=== PATIENT | female | born 1990 ===

== ENCOUNTER 2019-12-28 10:45 | Emergency (ER) | payer OTHER, BC, SELFPAY ==
[2019-12-28 10:54] VITALS: BP 119/71; PULSE 72; RESP 18; TEMP 36.4; O2SAT 100
--- NOTE | 2019-12-28 11:31 | ED.ANIMALBIT ---
HPI - Animal Bite General Chief Complaint: Animal Bite Stated Complaint: dog bite Time Seen by Provider: 12/28/19 10:59 Source: patient Mode of arrival: ambulatory Limitations: no limitations History of Present Illness HPI narrative: Patient presents with chief complaint of dog bite to the nose with dorsal aspect at the base of the left thumb as well as the center of her palm that she sustained while working at the [employer]. Patient states that your dog is in good health. Patient reports some discomfort to the area but denies loss of range of motion. Patient states she does not think she is up-to-date on her Tdap. Patient denies chance of . Patient denies any other falls or injuries. Related Data Allergies Allergy/AdvReac Type Severity Reaction Status Date / Time poison ady extract Allergy Unknown Swelling Verified 12/28/19 11:44 Bumble Bee Allergy Unknown Swelling Uncoded 12/28/19 11:44 Review of Systems Review of Systems: Narrative: CONSTITUTIONAL: Denies fever, chills, or sweats. CARDIOVASCULAR: Denies chest pain, palpitations, or edema. RESPIRATORY: Denies cough or dyspnea. GASTROINTESTINAL: Denies abdominal pain, nausea, vomiting, or diarrhea. GENITOURINARY: Denies dysuria or hematuria. SKIN: Reports dog bite denies rash or itching. MUSCULOSKELETAL: Denies back pain, joint pain, or myalgia. NEUROLOGIC: Denies headache, numbness, dizziness, or weakness. PSYCHIATRIC: Denies anxiety or depression. [facility] Family History Family History (Updated 05/03/18 @ 14:43 by DOCTOR UNKNOWN) Sibling Diabetes mellitus Family history of malignant neoplasm Family history of lung cancer Social History Social History Smoking status: Smoker, status unknown Alcohol intake: current Gender identity (if verbalized by the patient): Female Exam Narrative: Exam Narrative: GENERAL: Well-appearing, well-nourished, and in no acute distress. HEAD: Normocephalic, atraumatic. EYES: PERRLA and EOMI. ENT: Nares clear, no rhinorrhea or epistaxis. Mucous membranes moist. Oropharynx without tonsillar hypertrophy exudate or other lesions. NECK: Supple. No adenopathy or masses. CHEST: Clear to auscultation. No respiratory distress. No wheezes rales or rhonchi HEART: Regular rate and rhythm. EXTREMITIES: Normal range of motion. No edema. SKIN: Approximate 1.5 cm tooth laceration to the dorsal aspect of the left hand near the thumb base. Tenderness surrounding. Puncture wound to the volar aspect- center of the palm. No active bleeding to the wounds at this time. Warm, dry, no rash. NEURO: No focal deficits. Alert and oriented x3. PSYCH: Normal mood and affect. Course Vital Signs Vital signs: Vital Signs Temperature 97.5 F L 12/28/19 10:54 Pulse Rate 72 12/28/19 10:54 Respiratory Rate 18 12/28/19 10:54 Blood Pressure 119/71 12/28/19 10:54 Pulse Oximetry 100 12/28/19 10:54 Temperature 97.5 F L 12/28/19 10:54 Pulse Rate 62 12/28/19 11:56 Respiratory Rate 18 12/28/19 11:56 Blood Pressure 135/51 L 12/28/19 11:56 Pulse Oximetry 98 12/28/19 11:56 MDM - Animal Bite MDM Narrative Medical decision making narrative: Patient declines hand x-ray. Patient denies any allergies to penicillin. Patient declines Tylenol or Motrin for discomfort. Patient's wound will be cleansed and dressed. The wound is not gaping and due to being caused by animal bite will be allowed to heal naturally. CDC does not recommend rabies injections for domestic dog bites. Patient instructed to follow-up with primary care for wound reevaluation if any symptoms of infection present. Differential Diagnosis Differential diagnosis: Likely bite by animal, cat bite, dog bite and rabies contact Discharge Plan Discharge Clinical Impression: Dog bite Qualifiers: Encounter type: initial encounter Qualified Code(s): W54.0XXA - Bitten by dog, initial encounter Patient Disposition: Home, Self-Care Condition: Impr
[2019-12-28] MEDS: TETANUS,DIPHTHERIA,AC PERTUSSIS ADULT (0.5 ML) BOOSTRIX IM (11:45)
[2019-12-28 11:56] VITALS: BP 135/51; PULSE 62; RESP 18; O2SAT 98
== END 2019-12-28 11:57 | disposition home or self-care (01) ==
PROVIDERS: Emergency Provider Emergency Medicine; PCP Family Medicine
DX: S61.452A Open bite of left hand, initial encounter (principal); W54.0XXA Bitten by dog, initial encounter; Z23 Encounter for immunization
CPT/HCPCS: 90471; 90715; 99283

== ENCOUNTER 2022-09-27 07:28 | Emergency (ER) | payer OTHER, SELFPAY ==
[2022-09-27 07:32] VITALS: BP 153/85; PULSE 86; RESP 16; TEMP 37; O2SAT 99
--- NOTE | 2022-09-27 08:26 | ED.GENADULT ---
HPI - General Adult General Chief complaint: Recheck/Abnormal Lab/Rx Stated complaint: complications of strep throat Time Seen by Provider: 09/27/22 07:31 History of Present Illness HPI narrative: Patient is a 32-year-old female who presents ER with sore throat and concerns for swollen uvula. Patient reports she had sore throat over the last 2 days. She thought she was getting better but woke up today with some difficulty swallowing. She has noticed her uvula is enlarged. No exudate. No difficulty with secretions or breathing. Denies fevers today but have not fevers previously. No known sick contacts. Related Data Allergies Allergy/AdvReac Type Severity Reaction Status Date / Time poison ady extract Allergy Unknown Swelling Verified 09/27/22 07:39 Bumble Bee Allergy Unknown Swelling Uncoded 09/27/22 07:39 Review of Systems Constitutional: Constitutional: Denies chills, Denies fatigue and Reports fever(s) ENT: Denies nasal congestion and Reports sore throat Gastrointestinal: Gastrointestinal: Denies abdominal pain, Denies nausea and Denies vomiting PMF Past Medical History Medical History (Updated 09/27/22 @ 09:09 by Jose Miguel Bernard MD) Anxiety state, unspecified Pure hyperglyceridemia Surgical History Surgical History (Updated 09/27/22 @ 08:28 by Jose Miguel Bernard MD) No pertinent past surgical history Family History Family History Sibling Diabetes mellitus Family history of malignant neoplasm Family history of lung cancer Social History Social History Smoking status: Smoker, status unknown Alcohol intake: current Gender identity (if verbalized by the patient): Female Exam Narrative: GENERAL: Well-appearing, morbidly obese, and in no acute distress. HEAD: Normocephalic, atraumatic. ENT: Mucous membranes moist. Mild edema of the uvula which remains midline. No tonsillar hypertrophy or exudate. Patient tolerating oral secretions. CHEST: Clear to auscultation. No respiratory distress. HEART: Regular rate and rhythm. Normal peripheral pulses. EXTREMITIES: Normal range of motion. No edema. SKIN: Warm, dry, no rash. NEURO: Alert and oriented x3. PSYCH: Normal mood and affect. Course Course Emergency Course: Patient resting comfortably. Received oral Decadron and reports swelling is decreased. Informed of results. Patient felt appropriate for discharge home. Vital Signs Vital signs: Vital Signs Temperature 98.6 F 09/27/22 07:32 Pulse Rate 86 09/27/22 07:32 Respiratory Rate 16 09/27/22 07:32 Blood Pressure 153/85 H 09/27/22 07:32 Pulse Oximetry 99 09/27/22 07:32 Temperature 98.6 F 09/27/22 07:32 Pulse Rate 86 09/27/22 07:32 Respiratory Rate 16 09/27/22 07:32 Blood Pressure 153/85 H 09/27/22 07:32 Pulse Oximetry 99 09/27/22 07:32 Medical Decision Making Vital Signs Vital Signs: Vital Signs Temperature 98.6 F 09/27/22 07:32 Pulse Rate 86 09/27/22 07:32 Respiratory Rate 16 09/27/22 07:32 Blood Pressure 153/85 H 09/27/22 07:32 Pulse Oximetry 99 09/27/22 07:32 Temperature 98.6 F 09/27/22 07:32 Pulse Rate 86 09/27/22 07:32 Respiratory Rate 16 09/27/22 07:32 Blood Pressure 153/85 H 09/27/22 07:32 Pulse Oximetry 99 09/27/22 07:32 Lab Data Labs: Lab Results 09/27/22 Range/Units 08:06 Influenza A (RT-PCR) Negative (Negative) Influenza B (RT-PCR) Negative (Negative) SARS-CoV-2 RNA (RT-PCR) Negative (Negative) Group A Strep (PCR) Not detected (Negative) Discharge Plan Discharge Clinical Impression: Uvulitis Patient Disposition: Home, Self-Care Condition: Stable Instructions: Uvulitis (ED) Prescriptions: New Cepacol Sore Throat (risa-men) 15-2.6 mg lozenge 1 claudia mucous membrane Q2-4H PRN (Reason: sore throat) Qty: 16 0
[2022-09-27 08:38] LABS: Strep Group A RT-PCR NOT DETECTED (Negative)
[2022-09-27 08:50] LABS: Influenza A QL RT-PCR Negative (Negative); Influenza B QL RT-PCR Negative (Negative); SARS-CoV-2 RNA PCR Negative (Negative)
[2022-09-27 09:19] VITALS: BP 128/84; PULSE 78; RESP 18; O2SAT 97
== END 2022-09-27 09:20 | disposition home or self-care (01) ==
PROVIDERS: Emergency Provider Emergency Medicine; PCP Family Medicine
DX: K12.2 Cellulitis and abscess of mouth (principal); Z20.822 Contact with and (suspected) exposure to COVID-19
CPT/HCPCS: 87636; 87651; 99283; J8540

== ENCOUNTER 2024-08-10 20:51 | Emergency (ER) | payer OTHER, SELFPAY ==
--- NOTE | ~2024-08-10 | CT_ITS ---
CT of the Abdomen and Pelvis: Indication: Abdominal pain Technique: 2.5 mm axial scans were obtained through the abdomen and pelvis following intravenous adm inistration of 100 cc of Omnipaque 350. Dose reduction technique was used on this scan by utilizing a utomated exposure control and iterative reconstruction technique. The dose-length product (DLP) was 1 502.74 mGy-cm. Findings: Scans through the lung bases are unremarkable. The liver, spleen, pancreas, adrenals and kidneys are within normal limits. Large calcified gallstone s are present. No evidence of aortic aneurysm. No lymphadenopathy. No bowel obstruction or bowel wall thickening. There is minimal haziness in the central mesentery wit h fluid-filled small bowel loops. Gastric lap band in place. Images through the pelvis were performed. Urinary bladder unremarkable. No pelvic mass seen. Small am ount of pelvic ascites present. Impression: Questionable nonspecific diarrheal illness or small bowel enteritis. Cholelithiasis. Gastric lap band in place. Reviewed, dictated and finalized at location . Impression: Questionable nonspecific diarrheal illness or small bowel enteritis. Cholelithiasis. Gastric lap band in place.
--- OUTSIDE RECORDS SUMMARY | 2024-08-10 20:54 | XMS_ITS | Clinical Summary ---
Author Organization [facility] Bragster SAHUARITA Address [address] [employer] [address] Care Team Providers Care Pipe Fitter Apprentice Name Role Phone Priti Damon MD Primary Care Provider [phone] Allergies Active Allergy Reactions Criticality Noted Date Comments Hymenoptera Allergenic Extract Hives High 05/27/2023 Fever, Hives, Itching, Rash, Swelling Carries Epi-Pen Medications cholecalciferol (Vitamin D3) 25 mcg (1,000 unit) Tablet, ChewableIndicat ions:Vitamin D deficiency Take 2 Tablets (2,000 Units) by mouth daily. 4 Active CHOLECALCIFEROL , VITAMIN D3, ORAL Take by mouth. Activ e tirzepatide, weight loss, (Zepbound) 12.5 mg/0.5 mL Pen Injector Inject 12.5 mg by subcutaneous injection every 7 days. 2 mL 5 Active Active Problems Problem Noted Date Diagnosed Date S/P bariatric surgery - lap band. 11/04/2023 Vitamin D deficiency 05/27/2023 Morbid obesity with body mass index of 40.0-49.9 05/27/2023 Liver enzyme elevation 05/27/2023 Encounters Date Type Department Care Team Description 08/10/2024 Orders Only [facility] [place] [address] [address] [facility] [place] [address] Cristine Stinson, RANDALL Bilateral lower abdominal pain (Primary Dx) 07/29/2024 External Device Data ST[facility] ABSTRACTION Provider, Abstract 07/28/2024 External Device Data ST[facility] ABSTRACTION Provider, Abstract 07/25/2024 External Device Data ST[place] ABSTRACTION Provider, Abstract 07/11/2024 External Device Data STL ABSTRACTION Provider, Abstract 07/11/2024 Orders Only [facility] at [place] [address] [address] Cristine Stinson, RANDALL 06/20/2024 7:30 AM WIRELESS ARCHITECT Office Visit [place] [address] [address] Priti Damon MD Morbid obesity with body mass index of 40.0-49.9 (CMS/HCC) (Primary Dx); Low HDL (under 40); Vitamin D deficiency 06/20/2024 External Device Data STL ABSTRACTION Provider, Abstract 06/15/2024 Results Follow-Up [place] [address] [place] [address] Cristine Stinson, RANDALL MAGNESIUM LEVEL, LIPID PANEL, COMPREHENSIVE METABOLIC PANEL, Additional followed-up results: 7 06/14/2024 External Device Data ST[place] ABSTRACTION Provider, Abstract 06/13/2024 7:40 AM WIRELESS ARCHITECT Clinical Support [place] [address] [place] [address] S/P bariatric surgery - lap band.; Screening for condition 06/13/2024 External Device Data STL ABSTRACTION Provider, Abstract from Last 3 Months Immunizations Immunization Administration Dates Next Due (ADACEL/BOOSTRIX)(10 YR UP) TDAP VACCINE, 0.5ML, IM 11/24/2023 INFLUENZA VACCINE TRIVALENT SPLIT VIRUS, (6 MOS UP), 0.5ML (PF), IM 03/01/2024 Family History Medical History Relation Name Comments No Known Problems Daughter Yadi No Known Problems Father Diabetes Maternal Grandmother Camila Hayes Diabetes Mother Cindy Hayes No Known Problems Son step son/Quinn Colon Cancer Neg Hx Lung Cancer Neg Hx Ovarian Cancer Neg Hx Relation Name Status Comments Daughter Yadi Alive Father Alive Maternal Grandmother Camila Hayes Mother Cindy Hayes Alive Sister Alive Son step son/Quinn Alive Social History Tobacco Use Types Packs/Day Years Used Date Smoking Tobacco: Former Cigarettes 0.5 2 0 12/27/2015 - 12/26/2017 Smokeless Tobacco: Never Tobacco Cessation:Counseling Given: Not Answered Alcohol Use Standard Drinks/Week Comments Not Currently 2 (1 standard drink = 0.6 oz pur e alcohol) Sober Comments No Sex and Gender Information Value Date Recorded Sex Assigned at Not on file Legal Sex Female 12:00 PM CDT Gender Identity Not on file Sexual Orientation Not on file Last Filed Vital Signs Vital Sign Reading Time Taken Comments Blood Pressure 114/66 06/20/2024 7:34 AM WIRELESS ARCHITECT Pulse 74 06/20/2024 7:34 AM WIRELESS ARCHITECT Temperature 36.2 C (97.2 F) 06/20/2024 7:34 AM WIRELESS ARCHITECT Respiratory Rate 18 06/20/2024 7:34 AM WIRELESS ARCHITECT Oxygen Saturation 98% 06/20/2024 7:34 AM WIRELESS ARCHITECT Inhaled Oxygen Concentration - - Weight 115.7 kg (255 lb) 06/20/2024 7:34 AM WIRELESS ARCHITECT Height 167.6 cm (5' 6 ) 06/20/2024 7:34 AM WIRELESS ARCHITECT Body Mass Index 41.16 06/20/2024 7:34 AM WIRELESS ARCHITECT Plan of Treatment Upcoming Encounters Date Type Department Care Team (Late st Contact Info) Description 08/11/2024 1:00 PM CDT Procedure visit [facility] at [facility] [employer] [place] [address] [place] [address] 08/15/2024 7:30 AM CDT Office Visit [facility] at [facility] [employer] [place] [address] [address] Cristine Stinson, RANDALL [address] [facility] [address] [place] [address] 09/19/2024 7:30 AM CDT Office Visit [facility] at [facility] [employer] [place] [address] [place] [address] Cristine Stinson, RANDALL [address] [facility] [address] [place] [address] Health Maintenance Due Date Last Done Comments HEPATITIS B VACCINES (1 of 3 - 19+ 3-dose series) 2011 PAP SMEAR 2013 CERVICAL CANCER SCREENING 2022 HPV/Cotest 2022 PAP SMEAR 2022 Preventative Visit- Commercial 05/24/2024 DTAP/TDAP/TD VACCINES (2 - T d or Tdap) 11/23/2033 11/24/2023 INFLUENZA VACCINE Completed 03/01/2024 HPV VACCINES Aged Out No longer eligi ble based on patient's age to complete this topic Procedures Procedure Name Priority Date/Time Associated Diagnosis Comments VITAMIN B12 LEVEL Routine 06/13/2024 7:4 0 AM WIRELESS ARCHITECT S/P bariatric surgery - lap band. FOLATE, SERUM Routine 06/13/2024 7:40 AM WIRELESS ARCHITECT S/P bariatric surgery - lap band. VITAMIN D 25 HYDROXY Routine 06/13/2024 7:40 AM WIRELESS ARCHITECT S/P bariatric surgery - lap band. HEMOGLOBIN A1C Routine 06/13/2024 7:40 AM WIRELESS ARCHITECT Screening for condition MICROALBUMIN/CREATININ E RATIO, RANDOM UR Routine 06/13/2024 7:40 AM WIRELESS ARCHITECT Screening for condition TSH REFLEXIVE Routine 06/13/2024 7:40 AM WIRELESS ARCHITECT Screening for condition CBC WITH DIFFERENTIAL Routine 06/13/2024 7:40 AM WIRELESS ARCHITECT Screening for condition COMPREHENSIVE METABOLIC PANEL Routine 06/13/2024 7:40 AM WIRELESS ARCHITECT Screening for condition LIPID PANEL Routine 06/13/2024 7:40 AM WIRELESS ARCHITECT Screening for condition MAGNESIUM LEVEL Routine 06/13/2024 7:40 AM WIRELESS ARCHITECT S/P bariatric surgery - lap band. from Last 3 Months Results * TSH REFLEXIVE (06/13/2024 7:40 AM WIRELESS ARCHITECT) TSH 1.15 mIU/L [facility] Comment: Reference Range > or = 20 Years 0.40-4.50 Ranges First trimester 0.26-2.66 Second trimester 0.55-2.73 Third trimester 0.43-2.91 Test Performed at: [facility] [address] Michoacano Espinal MD Blood 06/13/2024 7:40 AM WIRELESS ARCHITECT 06/14/2024 8:25 AM WIRELESS ARCHITECT Cristine Stinson ANP CHEMISTRY ORDERABLES Final R esult [facility] [phone] [employer] [address] * MICROALBUMIN/CREATININE RATIO, RANDOM UR (06/13/2024 7:40 AM WIRELESS ARCHITECT) Creatinine, Urine 235 20 - 275 mg/dL [facility] MICROALBUMIN, URINE 0.8 See Note: mg/dL [facility] Comment: Reference Range: Reference Range Not established MICROALBUMIN/CREAT RATIO, UR 3 <30 mg/g creat [facility] Comment: The ADA defines abnormalities in albumin excretion as follows: Albuminuria Category Result (mg/g creatinine) Normal to Mildly increased <30 Moderately increased 30-299 Severely increased > OR = 300 The ADA recommends that at least two of three specimens collected within a 3-6 month period be abnormal before considering a patient to be within a diagnostic category. Test Performed at: [facility] [place] [address] Michoacano Espinal MD Urine URINE SPECIMEN OBTAINED BY CLEAN CATCH PROCEDURE / Unknown 06/13/2024 7:40 AM WIRELESS ARCHITECT 06/14/2024 8:24 AM WIRELESS ARCHITECT Cristine Stinson ANP URINE ORDERABLES Final Resul t Performing Organization Address [facility] de Phone Number [facility] [phone] [facility] [address] * FOLATE, SERUM (06/13/2024 7:40 AM WIRELESS ARCHITECT) [facility] FOLATE, SERUM >24.0 ng/mL [facility] Comment: Reference Range Low: <3.4 Borderline: 3.4-5.4 Normal: >5.4 Test Performed at: [facility] [address] Michoacano Espinal MD Blood 06/13/2024 7:40 AM WIRELESS ARCHITECT 06/14/2024 8:25 AM WIRELESS ARCHITECT Cristine Stinson ANP CHEMISTRY ORDERABLES Final R esult Performing Organization Address [facility] Co de Phone Number [facility] [phone] [facility] [address] * CBC WITH DIFFERENTIAL (06/13/2024 7:40 AM WIRELESS ARCHITECT) [facility] WBC 4.4 3.8 - 10.8 Thousand/u L [facility] RBC 4.25 3.80 - 5.10 Million/uL [facility] HEMOGLOBIN 12.8 11.7 - 15.5 g/dL [facility] HEMATOCRIT 39.5 35.0 - 45.0 % [facility] MCV 92.9 80.0 - 100.0 fL [facility] MCH 30.1 27.0 - 33.0 pg [facility] MCHC 32.4 32.0 - 36.0 g/dL [facility] Comment: For adults, a slight decrease in the calculated MCHC value (in the range of 30 to 32 g/dL) is most likely not clinically significant; however, it should be interpreted with caution in correlation with other red cell parameters and the patient's clinical condition. RDW 12.2 11.0 - 15.0 % [facility] PLATELETS 247 140 - 400 Thousand/u L [facility] MPV 11.7 7.5 - 12.5 fL [facility] NEUTROPHIL ABSOLUTE 2,314 1,500 - 7,800 cells/uL [facility] LYMPHOCYTE ABSOLUTE 1,566 850 - 3,900 cells/uL [facility] MONOCYTE ABSOLUTE 418 200 - 950 cells/uL [facility] EOSINOPHIL ABSOLUTE 70 15 - 500 cells/uL [facility] BASOPHILS ABSOLUTE 31 0 - 200 cells/uL [facility] NEUTROPHIL 52.6 % [facility] LYMPHOCYTES 35.6 % [facility] MONOCYTE 9.5 % [facility] EOSINOPHILS 1.6 % [facility] BASOPHILS 0.7 % [facility] Comment: Test Performed at: [facility] [address] [place] [address] Michoacano Espinal MD Blood 06/13/2024 7:40 AM WIRELESS ARCHITECT 06/14/2024 8:25 AM WIRELESS ARCHITECT us Cristine Stinson ANP HEMATOLOGY ORDERABLES Final Result [facility] [phone] [facility] [address] [place] [address] * VITAMIN D 25 HYDROXY (06/13/2024 7:40 AM WIRELESS ARCHITECT) VITAMIN D, 25 OH, TOTAL 33 30 - 100 ng/mL [facility] Comment: Vitamin D Status 25-OH Vitamin D: Deficiency: <20 ng/mL Insufficiency: 20 - 29 ng/mL Optimal: > or = 30 ng/mL For 25-OH Vitamin D testing on patients on D2-supplementation and patients for whom quantitation of D2 and D3 fractions is required, the [facility]) 25-OH VIT D, (D2,D3), LC/MS/MS is recommended: order code 50774 (patients >2yrs). See Note 1 Note 1 For additional information, please refer to http://education.HTP/faq/KOV171 (This link is being provided for informational/ educational purposes only.) Test Performed at: [facility] [place] [address] Michoacano Espinal MD Blood 06/13/2024 7:40 AM WIRELESS ARCHITECT 06/14/2024 8:25 AM WIRELESS ARCHITECT Cristine Stinson ANP CHEMISTRY ORDERABLES Final R esult Performing Organization Address [facility]/ZIP Co de Phone Number [facility] [phone] [facility] [address] * MAGNESIUM LEVEL (06/13/2024 7:40 AM WIRELESS ARCHITECT) MAGNESIUM 2.1 1.5 - 2.5 mg/dL [facility] Comment: Test Performed at: [facility] [place] [address] Michoacano Espinal MD Blood 06/13/2024 7:40 AM WIRELESS ARCHITECT 06/14/2024 8:25 AM WIRELESS ARCHITECT Cristine Stinson ANP CHEMISTRY ORDERABLES Final R formerly [facility] Performing Organization Address [facility] Co de Phone Number [facility] [phone] [facility] [address] * HEMOGLOBIN A1C (06/13/2024 7:40 AM WIRELESS ARCHITECT) HEMOGLOBIN A1C 4.6 <5.7 % of total Hgb [facility] Comment: For the purpose of screening for the presence of diabetes: <5.7% Consistent with the absence of diabetes 5.7-6.4% Consistent with increased risk for diabetes (prediabetes) > or =6.5% Consistent with diabetes This assay result is consistent with a decreased risk of diabetes. Currently, no consensus exists regarding use of hemoglobin A1c for diagnosis of diabetes in children. According to [place] Diabetes Association (ADA) guidelines, hemoglobin A1c <7.0% represents optimal control in non- diabetic patients. Different metrics may apply to specific patient populations. Standards of Medical Care in Diabetes(ADA). ESTIMATED AVERAGE GLUCOSE (MG/DL) 85 mg/dL [facility] ESTIMATED AVERAGE GLUCOSE (MMOL/L) 4.7 mmol/L [facility] Comment: Test Performed at: [facility] [address] [facility] [place] [address] Michoacano Espinal MD Blood 06/13/2024 7:40 AM WIRELESS ARCHITECT 06/14/2024 8:25 AM WIRELESS ARCHITECT Cristine Stinson ANP CHEMISTRY ORDERABLES Final R esult Performing Organization Address City/[facility]/ZIP Co de Phone Number [facility] [phone] [facility] [place] [address] * VITAMIN B12 LEVEL (06/13/2024 7:40 AM WIRELESS ARCHITECT) VITAMIN B12 845 200 - 1100 pg/mL [facility] Comment: Test Performed at: [facility] [address] [place] [address] [place] [address] Michoacano Espinal MD Blood 06/13/2024 7:40 AM WIRELESS ARCHITECT 06/14/2024 8:25 AM WIRELESS ARCHITECT Cristine Stinson ANP CHEMISTRY ORDERABLES Final R esult [facility] [phone] [facility] [address] [place] [address] * (ABNORMAL) LIPID PANEL (06/13/2024 7:40 AM WIRELESS ARCHITECT) CHOLESTEROL 146 <200 mg/dL [facility] HDL 44(L) > OR = 50 mg/dL [facility] TRIGLYCERIDE 53 <150 mg/dL [facility] LDL CALCULATED 88 mg/dL (calc) [facility] Comment: Reference range: <100 Desirable range <100 mg/dL for primary prevention; <70 mg/dL for patients with CHD or diabetic patients with > or = 2 CHD risk factors. LDL-C is now calculated using the Clau calculation, which is a validated novel method providing better accuracy than the Friedewald equation in the estimation of LDL-C. Navin HODGE et al. BECKA. 2013;310(55): 1146-3419 (http://education.HTP/faq/BPH811) CHOL/HDL RATIO 3.3 <5.0 (calc) [facility] NON-HDL CHOLESTEROL 102 <130 mg/dL (calc) [facility] Comment: For patients with diabetes plus 1 major ASCVD risk factor, treating to a non-HDL-C goal of <100 mg/dL (LDL-C of <70 mg/dL) is considered a therapeutic option. Test Performed at: [facility] [id number] [place] [address] Michoacano Espinal MD Blood 06/13/2024 7:40 AM WIRELESS ARCHITECT 06/14/2024 8:25 AM WIRELESS ARCHITECT us Cristine Stinson [facility] CHEMISTRY ORDERABLES Final R esult [facility] [phone] [employer] [id number] [place] [address] * (ABNORMAL) COMPREHENSIVE METABOLIC PANEL (06/13/2024 7:40 AM WIRELESS ARCHITECT) GLUCOSE 76 65 - 99 mg/dL [facility] Comment: Fasting reference interval BUN 18 7 - 25 mg/dL [facility] CREATININE 0.89 0.50 - 0.97 mg/dL [facility] GFR 89 > OR = 60 mL/min/1. 73m2 [facility] BUN/CREAT RATIO SEE NOTE: (calc) [facility] Comment: Not Reported: BUN and Creatinine are within reference range. SODIUM 138 135 - 146 mmol/L [facility] POTASSIUM 4.1 3.5 - 5.3 mmol/L [facility] CHLORIDE 105 98 - 110 mmol/L [facility] CO2 25 20 - 32 mmol/L [facility] CALCIUM 9.5 8.6 - 10.2 mg/dL [facility] TOTAL PROTEIN 6.9 6.1 - 8.1 g/dL [facility] ALBUMIN 4.4 3.6 - 5.1 g/dL [facility] GLOBULIN 2.5 1.9 - 3.7 g/dL (calc) [facility] ALBUMIN/GLOBULIN RATIO 1.8 1.0 - 2.5 (calc) [facility] BILIRUBIN TOTAL 0.7 0.2 - 1.2 mg/dL [facility] ALKALINE PHOSPHATASE 55 31 - 125 U/L [facility] AST 20 10 - 30 U/L [facility] ALT 31(H) 6 - 29 U/L [facility] Comment: Test Performed at: [facility] [address] [place] [address] Michoacano Espinal MD Blood 06/13/2024 7:40 AM WIRELESS ARCHITECT 06/14/2024 8:25 AM WIRELESS ARCHITECT us Cristine Stinson [facility] CHEMISTRY ORDERABLES Final R esult [facility] [phone] [facility] [address] [place] [address] from Last 3 Months Insurance OPEN ACCESS ALLEGIAN OPEN ACCESS Care Teams Pipe Fitter Apprentice Relationship Specialty Start Date End Date Priti Damon MD [address] [place] [address] [place] [address] PCP - General Internal Medicine 10/21/23
--- OUTSIDE RECORDS SUMMARY | 2024-08-10 20:54 | XMS_ITS | Data Portability ---
Author Organization [place] [facility], Main Office Address [address] [place] [address] Assessment No assessment recorded. Plan of Treatment Reminders Order Date Submit Date Provider Last Modified By Organization Details Last Modified Time Details Appointments None recorded. Lab lipid panel, serum 2022 023 [email or web address] Not available 3 09:02:10 BMP, serum or plasma 2022 023 [email or web address] Not available 3 09:02:10 glycohemogl obin, total, blood 2022 023 Not available 3 09:02:10 hepatic function panel, serum 2022 023 [email or web address] Not available 3 09:02:10 CBC w/ auto diff 2022 023 [email or web address] Not available 3 09:02:09 TSH, serum or plasma 2022 023 Not available 3 09:02:09 vitamin B12, serum 2022 023 [email or web address] Not available 3 09:02:09 iron + total iron-bindin g capacity (TIBC), serum 2022 023 Not available 3 09:02:10 ferritin, serum or plasma 2022 023 [email or web address] Not available 3 09:02:10 folate, serum 2022 023 Not available 09:02:10 vitamin D, 25-hydroxy, total, serum 2022 023 [email or web address] Not available 09:02:10 Referral ENT surgery referral - Please call the pt to make an appt. Thank you 2022 023 [email or web address] [id number] Benjamín Quesada MD, [address] [facility] , [address], [place], [address], 19:42:[address] referral - Please call the pt to make an appt. Thank you 2022 023 [place] [address] [facility], [address] [facility], [place], [address], 11:53:57 bariatric surgery referral - Please call the pt to make an appt. Thank you [address] (Weight Loss Management), [address] [facility] , [address], [place], [address], 19:42:39 Procedures None recorded. Surgeries None recorded. Imaging None recorded. Medication Orders EpiPen 2-Ryan 0.3 mg/0.3 mL injection, auto-inject or 2022 023 [facility] [address], [address] [place], [address], 16:08:22 Patient TargetsNo targets recorded. Patient InstructionsNo instructions recorded. Reason for Referral Bariatric Surgery Referral f or History of bariatric surgical procedure Please call the pt to make an appt. Thank you Referring Physician: Nereida Palomino, Family Medicine, Encounter Date: 09/22/2022 ENT Surgery Referral for Zhou yp of nasal cavity Please call the pt to make an appt. Thank you Referring Physician: Nereida Palomino, Family Medicine, Encounter Date: 09/22/2022 Mule Spinner Referral for Marco Antonio addison Please call the pt to make an appt. Thank you Referring Physician: Nereida Palomino, Family Medicine, Encounter Date: 09/22/2022 Results Created Date Observation Date Name Description Value Unit Range Abnormal Flag Note LastModifiedBy Organization Detail LastModifiedTime 10/24/19 23 10/23/2022 CBC WITH DIFFE RENTI AL/PL ATELE T WBC 6.1 x10e3 /uL 3.4-10 .8 Not Available [facility] ([facility]) [address] [place], [address], 10/24/2022 07:13:18 10/24/1910/23/2022 CBC WITH DIFFE RENTI AL/PL ATELE T RBC 4.38 x10e6 /uL 3.77-5 .28 Not Available [facility] ([facility]) [address] [place], [address], 10/24/2022 07:13:18 10/24/1910/23/2022 CBC WITH DIFFE RENTI AL/PL ATELE T hemoglobin 12.8 g/dL 11.1-1 5.9 Not Available [facility] ([facility]) [address] [facility], [place], [address], 10/24/2022 07:13:18 10/24/1910/23/2022 CBC WITH DIFFE RENTI AL/PL ATELE T hematocrit 39.2 % 34.0-4 6.6 Not Available [facility] ([facility]) [address] [place], [address], 10/24/2022 07:13:18 10/24/1910/23/2022 CBC WITH DIFFE RENTI AL/PL ATELE T MCV 90 fL 79-97 Not Available [facility] ([facility]) [address] [place], [address], 10/24/2022 07:13:18 10/24/19 23 10/23/2022 CBC WITH DIFFE RENTI AL/PL ATELE T MCH 29.2 pg 26.6-3 3.0 Not Available [facility] ([facility]) [address] [facility], [place], [address], 10/24/2022 07:13:18 10/24/19 23 10/23/2022 CBC WITH DIFFE RENTI AL/PL ATELE T MCHC 32.7 g/dL 31.5-3 5.7 Not Available [facility] ([facility]) [address] [facility], [place], [address], 10/24/2022 07:13:18 10/24/1910/23/2022 CBC WITH DIFFE RENTI AL/PL ATELE T RDW 12.7 % 11.7-1 5.4 Not Available [facility] ([facility]) [address] [place], [address], 10/24/2022 07:13:18 10/24/19 23 10/23/2022 CBC WITH DIFFE RENTI AL/PL ATELE T platelets 254 x10e3 /uL 150-45 0 Not Available [facility] ([facility]) [address] [facility], [place], [address], 10/24/2022 07:13:18 10/24/19 23 10/23/2022 CBC WITH DIFFE RENTI AL/PL ATELE T neutrophils 61 % not estab. Not Available [facility] ([facility]) [address] [facility], [place], [address], 10/24/2022 07:13:18 10/24/19 23 10/23/2022 CBC WITH DIFFE RENTI AL/PL ATELE T lymphs 29 % not estab. Not Available [facility] ([facility]) [address] [facility], [place], [address], 10/24/2022 07:13:18 10/24/19 23 10/23/2022 CBC WITH DIFFE RENTI AL/PL ATELE T monocytes 7 % not estab. Not Available [facility] ([facility]) [address] [place], [address], 10/24/2022 07:13:18 10/24/19 23 10/23/2022 CBC WITH DIFFE RENTI AL/PL ATELE T eos 2 % not estab. Not Available [facility] ([facility]) [address] [facility], [place], [address], 10/24/2022 07:13:18 10/24/19 23 10/23/2022 CBC WITH DIFFE RENTI AL/PL ATELE T basos 1 % not estab. Not Available [facility] ([facility]) [address] [facility], [place], [address], 10/24/2022 07:13:18 10/24/19 23 10/23/2022 CBC WITH DIFFE RENTI AL/PL ATELE T immature cells COOK BARBECUE Not Available [facility] ([facility]) [address] [place], [address], 10/24/2022 07:13:18 10/24/19 23 10/23/2022 CBC WITH DIFFE RENTI AL/PL ATELE T neutrophils (absolute) 3.7 x10e3 /uL 1.4-7. 0 Not Available [facility] ([facility]) [address] [place], [address], 10/24/2022 07:13:18 10/24/19 23 10/23/2022 CBC WITH DIFFE RENTI AL/PL ATELE T lymphs (absolute) 1.8 x10e3 /uL 0.7-3. 1 Not Available [facility] ([facility]) [address] [place], [address], 10/24/2022 07:13:18 10/24/19 23 10/23/2022 CBC WITH DIFFE RENTI AL/PL ATELE T monocytes(ab solute) 0.4 x10e3 /uL 0.1-0. 9 Not Available [facility] ([facility]) [address] [facility], [place], [address], 10/24/2022 07:13:18 10/24/19 23 10/23/2022 CBC WITH DIFFE RENTI AL/PL ATELE T eos (absolute) 0.1 x10e3 /uL 0.0-0. 4 Not Available [facility] ([facility]) [address] [facility], [place], [address], 10/24/2022 07:13:18 10/24/19 23 10/23/2022 CBC WITH DIFFE RENTI AL/PL ATELE T baso (absolute) 0.0 x10e3 /uL 0.0-0. 2 Not Available [facility] ([facility]) [address] [facility], [place], [address], 10/24/2022 07:13:18 10/24/19 23 10/23/2022 CBC WITH DIFFE RENTI AL/PL ATELE T immature granulocytes 0 % not estab. Not Available [facility] ([facility]) [address] [facility], [place], [address], 10/24/2022 07:13:18 10/24/19 23 10/23/2022 CBC WITH DIFFE RENTI AL/PL ATELE T immature grans (abs) 0.0 x10e3 /uL 0.0-0. 1 Not Available [facility] ([facility]) [address] [facility], [place], [address], 10/24/2022 07:13:18 10/24/19 23 10/23/2022 CBC WITH DIFFE RENTI AL/PL ATELE T NRBC COOK BARBECUE Not Available [facility] ([facility]) [address] [facility], [place], [address], 10/24/2022 07:13:18 10/24/19 23 10/23/2022 CBC WITH DIFFE RENTI AL/PL ATELE T hematology comments: COOK BARBECUE Not Available [facility] ([facility]) [address] [place], [address], 10/24/2022 07:13:18 10/24/19 23 10/24/2022 BASIC METAB OLIC PANEL (8) glucose 93 mg/dL 70-99 Not Available [facility] ([facility]) [address] [place], [address], 10/24/2022 07:13:19 10/24/19 23 10/24/2022 BASIC METAB OLIC PANEL (8) BUN 14 mg/dL 6-20 Not Available [facility] ([facility]) [address] [place], [address], 10/24/2022 07:13:19 10/24/19 23 10/24/2022 BASIC METAB OLIC PANEL (8) creatinine 0.81 mg/dL 0.57-1 .00 Not Available [facility] ([facility]) [address] [place], [address], 10/24/2022 07:13:19 10/24/19 23 10/24/2022 BASIC METAB OLIC PANEL (8) eGFR 100 mL/mi n/1.7 3 >59 Not Available [facility] ([facility]) [address] [place], [address], 10/24/2022 07:13:19 10/24/19 23 10/24/2022 BASIC METAB OLIC PANEL (8) BUN/creatini ne ratio 17 9-23 Not Available [facility] ([facility]) [address] [place], [address], 10/24/2022 07:13:19 10/24/19 23 10/24/2022 BASIC METAB OLIC PANEL (8) sodium 141 mmol/ L 134-14 4 Not Available [facility] ([facility]) [address] [place], [address], 10/24/2022 07:13:19 10/24/19 23 10/24/2022 BASIC METAB OLIC PANEL (8) potassium 4.2 mmol/ L 3.5-5. 2 Not Available [facility] ([facility]) [address] [place], [address], 10/24/2022 07:13:19 10/24/19 23 10/24/2022 BASIC METAB OLIC PANEL (8) chloride 106 mmol/ L 96-106 Not Available [facility] ([facility]) [address] [place], [address], 10/24/2022 07:13:19 10/24/19 23 10/24/2022 BASIC METAB OLIC PANEL (8) carbon dioxide, total 22 mmol/ L 20-29 Not Available [facility] ([facility]) [address] [place], [address], 10/24/2022 07:13:19 10/24/19 23 10/24/2022 BASIC METAB OLIC PANEL (8) calcium 9.1 mg/dL 8.7-10 .2 Not Available [facility] ([facility]) [address] [place], [address], 10/24/2022 07:13:19 10/24/19 23 10/24/2022 LIPID PANEL cholesterol, total 172 mg/dL 100-19 9 Not Available [facility] ([facility]) [address] [place], [address], 10/24/2022 07:13:20 10/24/19 23 10/24/2022 LIPID PANEL triglyceride s 88 mg/dL 0-149 Not Available [facility] ([facility]) [address] [place], [address], 10/24/2022 07:13:20 10/24/19 23 10/24/2022 LIPID PANEL HDL cholesterol 49 mg/dL >39 Not Available [facility] ([facility]) [address] [place], [address], 10/24/2022 07:13:20 10/24/19 23 10/24/2022 LIPID PANEL VLDL cholesterol deshawn 16 mg/dL 5-40 Not Available [facility] ([facility]) [address] [place], [address], 10/24/2022 07:13:20 10/24/19 23 10/24/2022 LIPID PANEL LDL chol calc ([facility]) 107 mg/dL 0-99 above high normal Not Available [facility] ([facility]) [address] [place], [address], 10/24/2022 07:13:20 10/24/19 23 10/24/2022 LIPID PANEL comment: COOK BARBECUE Not Available [facility] ([facility]) [address] [place], [address], 10/24/2022 07:13:20 10/24/19 23 10/24/2022 HEPAT IC FUNCT ION PANEL (7) protein, total 6.7 g/dL 6.0-8. 5 Not Available [facility] ([facility]) [address] [place], [address], 10/24/2022 07:13:21 10/24/19 23 10/24/2022 HEPAT IC FUNCT ION PANEL (7) albumin 4.2 g/dL 3.9-5. 0 Not Available [facility] ([facility]) [address] [place], [address], 10/24/2022 07:13:21 10/24/19 23 10/24/2022 HEPAT IC FUNCT ION PANEL (7) bilirubin, total 0.6 mg/dL 0.0-1. 2 Not Available [facility] ([facility]) [address] [place], [address], 10/24/2022 07:13:21 10/24/19 23 10/24/2022 HEPAT IC FUNCT ION PANEL (7) bilirubin, direct 0.16 mg/dL 0.00-0 .40 Not Available [facility] ([facility]) [address] [place], [address], 10/24/2022 07:13:21 10/24/19 23 10/24/2022 HEPAT IC FUNCT ION PANEL (7) alkaline phosphatase 81 IU/L 44-121 Not Available [facility] ([facility]) [address] [place], [address], 10/24/2022 07:13:21 10/24/19 23 10/24/2022 HEPAT IC FUNCT ION PANEL (7) AST (SGOT) 27 IU/L 0-40 Not Available [facility] ([facility]) [address] [place], [address], 10/24/2022 07:13:21 10/24/19 23 10/24/2022 HEPAT IC FUNCT ION PANEL (7) ALT (SGPT) 45 IU/L 0-32 above high normal Not Available [facility] ([facility]) [address] [place], [address], 10/24/2022 07:13:21 10/24/19 23 10/24/2022 IRON AND TIBC iron bind.cap.(TI BC) 374 ug/dL 250-45 0 Not Available [facility] ([facility]) [address] [place], [address], 10/24/2022 07:13:21 10/24/19 23 10/24/2022 IRON AND TIBC UIBC 320 ug/dL 131-42 5 Not Available [facility] ([facility]) [address] [place], [address], 10/24/2022 07:13:21 10/24/19 23 10/24/2022 IRON AND TIBC iron 54 ug/dL 27-159 Not Available [facility] ([facility]) [address] [place], [address], 10/24/2022 07:13:21 10/24/1910/24/2022 IRON AND TIBC iron saturation 14 % 15-55 below low normal Not Available [facility] ([facility]) [address] [facility], [place], [address], 10/24/2022 07:13:21 10/24/1910/24/2022 VITAM IN B12 AND FOLAT E vitamin B12 704 pg/mL 232-12 45 Not Available [facility] ([facility]) [address] [place], [address], 10/24/2022 07:13:22 10/24/1910/24/2022 VITAM IN B12 AND FOLAT E folate (folic acid), serum 5.0 NG/mL >3.0 A serum folat e blessing ntrat ion of less than 3.1 ng/mL is consi dered to repre sent clini deshawn defic iency . Not Available [facility] ([facility]) [address] [facility], [place], [address], 10/24/2022 07:13:22 10/24/1910/24/2022 HEMOG LOBIN A1C hemoglobin A1C 4.9 % 4.8-5. 6 Predi abete s: 5.7 - 6.4 Diabe reina: >6.4 Glyce usman contr ol for adult s with diabe reina: <7.0 Not Available [facility] ([facility]) [address] [facility], [place], [address], 10/24/2022 07:13:23 10/24/1910/24/2022 TSH TSH 1.350 uIU/m L 0.450- 4.500 Not Available [facility] ([facility]) [address] [place], [address], 10/24/2022 07:13:24 10/24/1910/24/2022 VITAM IN D, 25-HY DROXY vitamin D, 25-hydroxy 11.7 NG/mL 30.0-1 00.0 below low normal Vitam in D defic iency has been defin ed by the Insti tute of Medic ine and an Endoc rine Socie ty pract ice guide line as a level of serum 25-OH vitam in D less than 20 ng/mL (1,2) . The Endoc rine Socie ty went on to furth er defin e vitam in D insuf ficie ncy as a level betwe en 21 and 29 ng/mL (2). 1. IOM (Inst itute of Medic ine). 2010. Dieta ry refer ence nick es for calci um and D. Elise ching [place]: [facility] . 2. Bethany mejia MF, Jake mcdonough [place], Cornelia off-F errar i MARRERO, et al. Evalu ation , treat ment, and preve ntion of vitam in D defic iency : an Endoc rine Socie ty clini deshawn pract ice guide line. JCEM. 2010; 96(7) :1911 -30. Not Available [facility] ([facility]) [address] [place], [address], 10/24/2022 07:13:24 10/24/19 23 10/24/2022 CORTEZ TIN ferritin 81 NG/mL 15-150 Not Available [facility] ([facility]) [address] [place], [address], 10/24/2022 07:13:25 10/24/19 23 10/23/2022 AMBIG ABBRE V BMP8 DEFAU LT ambig abbrev BMP8 default Commen t A hand- writt en panel /prof pedro was recei criss from your offic e. In accor dance with the [facility] Anirudh walton Test Code Polic y dated November 2002, we have compl eted your order by using the close st curre ntly or forme rly recog nized AMA panel . We have assig javi Basic Metab olic Panel (8), Test Code #32[address]. If this is not the testi ng you wishe d to recei ve on this speci men, pleas e conta ct the [facility] Clien t Inqui ry/Te chnic al Servi art Depar tment to jax fy the test order . We appre ciate your busin ess. Not Available [facility] ([facility]) [address] [facility], [place], [address], 10/24/2022 07:13:26 10/24/19 23 10/23/2022 AMBIG ABBRE V LP DEFAU LT ambig abbrev LP default COMMEN T A hand- writt en panel /prof ile was recei criss from your offic e. In accor dance with the [facility] Anirudh uous Test Code Polic y dated November 2002, we have compl eted your order by using the close st curre ntly or forme rly recog nized AMA panel . We have assadria caldwell Lipid Panel , Test Code #30[address]. If this is not the testi ng you wishe d to recei ve on this speci men, pleas e conta ct the [facility] Clien t Inqui ry/Te chnic al Servi art Depar tment to ajx fy the test order . We appre ciate your busin ess. Not Available [facility] ([facility]) [address] [facility], [place], [address], 10/24/2022 07:13:26 Result Notes None recorded. 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 2022 Nereida Palomino MD [address], [address], [place], [address], [employer] 3 15:52:53 Jarad 918228988 Active 2022 Nereida Palomino MD [address], [place], [address], [employer] 3 15:56:44 Vitamin D deficiency 61507390 Active 2022 Nereida Palomino MD [address] [facility] [address], [place], [address], [employer] 3 16:01:37 Fatigue 76363926 Active 2022 Nereida Palomino MD [address] [facility], [address] [address], [place], [address], [employer] 3 16:01:57 Hyperlipidemia screening Active 2022 Nereida Palomino MD [address] [facility], [address] [address], [place], [address], [employer] 3 16:03:24 Allergic reaction to bee sting 913914383 Active 2022 Nereida Palomino MD [address] [facility], [address] [address], [place], [address], [employer] 3 16:08:03 Problem Notes None recorded. Medical Equipment None Reported. Allergies No known drug allergies Medications Name Sig Start Date Stop Date Status Note LastModified by Organization Details LastModified Time sharps container and alcohol WE CANNOT ACCEPT USED SHARPS CONTAINERS BACK active Not Available Not Available No t Available medl syringe 3ml 22g 1 inch USE DIRECTED TO MIX AND DRAW UP MENOPUR active Not Available Not Available No t Available BD Regular Bevel Preston 27 gauge x 1/2 USE DIRECTED TO INJECT MENOPUR active Not Available Not Available No t Available azithromycin 250 mg tablet TAKE 2 TABLETS BY MOUTH THE FIRST DAY THEN TAKE 1 TABLET BY MOUTH DAILY FOR 4 DAYS active Not Available Not Available N ot Available oxycodone-ac etaminophen 5 mg-325 mg tablet active Not Available Not Available Not Available BD Regular Bevel Preston 18 gauge x 1 USE DIRECTED TO DRAW NOVAREL active Not Available Not Available No t Available cabergoline 0.5 mg tablet active Not Available Not Available Not Available ergocalcifer ol (vitamin D2) 1,250 mcg (50,000 unit) capsule TAKE 1 CAPSULE BY MOUTH ONCE A WEEK active Not Available Not Available No t Available epinephrine 0.3 mg/0.3 mL injection, auto-injecto r USE DIRECTED active Not Available Not Available No t Available Cetrotide 0.25 mg subcutaneous kit INJECT 1 SYRINGE SUBCUTANEOU SLY EVERY MORNING active Not Available Not Available No t Available leuprolide 1 mg/0.2 mL subcutaneous kit INJECT 40 UNITS SUBCUTANEOU SLY ONCE WHEN DIRECTED (REFRIGERAT E REMAINDER) active Not Available Not Available N ot Available Alcohol Prep Pads DIRECTED active Not Available Not Available Not Available BD PrecisionGli de 25 gauge x 1 needle USE DIRECTED TO INJECT NOVAREL active Not Available Not Available No t Available Menopur 75 unit subcutaneous solution INJECT 150 UNITS SUBCUTANEOU SLY EVERY EVENING WHEN DIRECTED ON CYCLE CALENDAR active Not Available Not Available No t Available Easy Touch Insulin Syringe 0.5 mL 29 gauge x 1/2 USE DIRECTED TO INJECT LEUPROLIDE active Not Available Not Available N ot Available BD Luer-Evens Syringe 1 mL USE DIRECTED TO MIX AND DRAW UP NOVAREL active Not Available Not Available No t Available Gonal-F RFF Redi-Ject 900 unit/1.5 mL subcutaneous pen injector INJECT 150 IU SUBCUTANEOU SLY DAILY DIRECTED active Not Available Not Available Not Available Gonal-F RFF Redi-Ject 450 unit/0.75 mL subcutaneous pen injector INJECT 150 IU SUBCUTANEOU SLY DAILY DIRECTED active Not Available Not Available Not Available Gonal-F RFF Redi-Ject 300 unit/0.5 mL subcutaneous pen injector INJECT 150 IU SUBCUTANEOU SLY DAILY DIRECTED active Not Available Not Available Not Available Novarel 5,000 unit intramuscula r solution MIX VIAL WITH DILUENT AND INJECT 1,000IU INTRAMUSCUL SOREN ONCE WHEN DIRECTED ON CYCLE CALENDAR (REFRIGERAT E REMAINDER) active Not Available Not Available N ot Available Vitals Date Recorded Body height Body mass index (BMI) Body weight Body temperature Heart rate Oxygen saturation Oxygen saturation in Arterial blood by Pulse oximetry Systolic blood pressure Diastolic blood pressure Provider Name and Address Organization Details Last Updated DateTime 3 165.1 cm 60.2 kg/m2 847523. 44 g 97.4 [degF] 77 /min 98 % 98 % 125 mm[Hg] 80 mm[Hg] CJ Maradiaga - [facility] 3 15:26:39 Social History Question Answer Notes LastModified by Organizat ion Details LastModified Time Tobacco Smoking Status Former Smoker quit smoking 2018 quit vaping 2020 Nereida Palomino MD [address] [facility], [address] [address], [place], [address], [facility] [employer] [facility] 09/22/2022 15:44:42 What Is Your Level Of Alcohol Consumption? None [email or web address] Information not available 09/22/2022 What Is Your Level Of Caffeine Consumption? Occasional Information not available 09/22/2022 What Was The Date Of Your Most Recent Tobacco Screening? 09/22/2022 Information not available 09/22/2022 Do You Use Your Seat Belt Or Car Seat Routinely? Yes [email or web address] Information not available 09/22/2022 Do You Participate In Social Media? Yes [email or web address] Information not available 09/22/2022 Do You Feel Stressed (tense, Restless, Nervous, Or Anxious, Or Unable To Sleep At Night)? [id number] [email or web address] Information not available 09/22/2022 Do You Use Any Illicit Or Recreational Drugs? No Information not available 09/22/2022 Has Tobacco Cessation Counseling Been Provided? No Information not available 09/22/2022 Do You Or Have You Ever Used Any Other Forms Of Tobacco Or Nicotine? No [email or web address] Information not available 09/22/2022 Sex: Unknown Functional Status None recorded. Mental Status None recorded. Family History Relationship Description Onset Age of this Age Resolved Age Notes LastModified by Organization Details LastModified Time Mother Diabetes mellitus [email or web address] Not available 2022 15:27:30 Mother Crohn's disease [email or web address] Not available 2022 15:43:24 Mother Elisa-Danlo s syndrome [email or web address] Not available 09/22 15:43:31 Maternal Grandmother Diabetes mellitus Not available 2022 15:27:30 Paternal Grandmother Diabetes mellitus [email or web address] Not available 2022 15:27:30 Paternal Grandmother Malignant neoplasm of uterus [email or web address] Not available 2022 15:42:16 Paternal Grandmother Malignant tumor of breast May have been relate d to uterin e cancer Not available 09/22/2022 15:43:12 Paternal Grandfather Malignant tumor of lung [email or web address] Not available 2022 15:42:41 Medical History No medical history recorded. Gynecological HistoryNo gynecological history recorded. Obstetrics History GPAL:G 0 P 0 0 0 0 Past Encounters Encounter ID Performer Location Encounter Start Date Encounter Closed Date Diagnosis/Indication Diagnosis SNOMED-CT Code Diagnosis ICD10 Code Diagnosis Note [id number] Nereida Palomino MD [facility] Primary Care [facility] [address] [facility] [address] [place] [address] 09/22/2022 15:17:52 09/22/2022 18:07:22 History of bariatric surgical procedure 908166435 Z98.84 Polyp of nasal cavity 73 7159925 J33.0 Milia 579297106 L72.0 Vitamin D deficiency 347 77278 E55.9 Fatigue 45308752 R53.83 D50.9 E53.8 Hyperlipid emia screening 782289592 Z13.220 R73.9 Allergic r eaction to bee sting 018726100 T63.444A Health Concerns Section Related Observation LastModified by Organization Detai ls LastModified Time None Recorded Concern Status LastModified by Organization Details LastModified Time None Recorded Advance Directives Directive None Recorded Payers Encounter Date Sequence Insurance Name Policy Number Policy Kam Covered Member ID Kam Member ID Guarantor Name 09/22/2022 1 [facility] [employer] ([employer]) [id number] Shonda Hayes [id number] Shonda Hayes Notes Date Note Type Note Provider Name and Address Organization Details Recorded Time 09/22/2022 text/html Here to tamiko sparks. Has lap band in place that she would like removed. The port has flipped and occasionally will have some restriction based on what she eats. polyp/cyst in nose on left side, getting larger spot along corner right eyelid, gotten bigger. No drainage, it is sore when she rubs it interested in being healthy, thinking about having a baby working out, eating well, lost 16 pounds since August 03 wants to see thyroid, a1c, cholesterol recurrent sores under abdominal pannus Nereida Palomino MD [address] [facility], [facility] [address], [place], [address], [facility] 10/20/2022 17:59:42 OBGyn Episode No OBEpisode recorded.
--- OUTSIDE RECORDS SUMMARY | 2024-08-10 20:54 | XMS_ITS | Encounter Summary ---
Author Organization [facility] Address [address] [place] [address] Care Team Providers Care Casino Change Attendant Name Role Phone Priti Damon MD Primary Care Provider [phone] Encounter Details Date Type Department Care Team (Latest Contact Info) Description 06/15/2024 Results Follow-Up [facility] [place] [address] [place] [address] Cristine Stinson ANP [address] [facility] [address] [place] [address] MAGNESIUM LEVEL, LIPID PANEL, COMPREHENSIVE METABOLIC PANEL, Additional followed-up results: 7 Social History Tobacco Use Types Packs/Day Years Used Date Smoking Tobacco: Former Cigarettes 0.5 2 0 12/27/2015 - 12/26/2017 Smokeless Tobacco: Never Alcohol Use Standard Drinks/Week Comments Not Currently 2 (1 standard drink = 0.6 oz pur e alcohol) Sober Comments No Sex and Gender Information Value Date Recorded Sex Assigned at Not on file Legal Sex Female 12:00 PM CDT Gender Identity Not on file Sexual Orientation Not on file documented as of this encounter Miscellaneous Notes * Result Encounter Note - Cristine Stinson ANP - 06/15/2024 7:24 AM REVERBERATORY SKIMMER Labs all excellent. No concerns noted. Keep Jun [address] Damon. RBERATORY SKIMMER documented in this encounter Plan of Treatment Upcoming Encounters Date Type Department Care Team (Late st Contact Info) Description 08/11/2024 1:00 PM CDT Procedure visit [facility] [employer] [place] [address] [place] [address] 08/15/2024 7:30 AM CDT Office Visit [facility] [employer] [place] [address] [place] [address] Cristine Stinson, ANP [address] [facility] [address] [place] [address] 09/19/2024 7:30 AM CDT Office Visit [facility] [place] [address] [place] [address] Cristine Stinson, ANP [address] [facility] [address] [place] [address] documented as of this encounter Visit Diagnoses Not on filedocumented in this encounter Care Teams Casino Change Attendant Relationship Specialty Start Date End Date Priti Damon MD [address] [employer] [place] [address] PCP - General Internal Medicine 10/21/23 documented as of this encounter
--- OUTSIDE RECORDS SUMMARY | 2024-08-10 20:54 | XMS_ITS | Clinical Summary ---
Author Organization [facility] Care Team Providers Care Web Content Executive Name Role Phone Unavailable Primary Care Provider Unavailabl e Social History Tobacco Use Types Packs/Day Years Used Date Smoking Tobacco: Never Assessed Comments Unknown Sex and Gender Information Value Date Recorded Sex Assigned at Not on file Legal Sex Female 10:56 AM DOT NET DEVELOPER Gender Identity Not on file Sexual Orientation Not on file Plan of Treatment Health Maintenance Due Date Last Done Comments Hepatitis C Virus (HCV) Screening 1992 Hepatitis B Immunization (1 of 3 - 19+ 3-dose series) 2011 Pap Smear 2013 Cervical Cancer Screening (CCS) 2022 HPV/Cotest 2022 Influenza Immunization (#1) 2024 05/03/2018 SARS-COV-2 Immunization ( season) 2024 05/12/2021, 08/03/2020, 07/06/2020 Respiratory Syncytial Virus (RSV) Immunization (Adult) (1 - 1-dose 75+ series) 2067 DTaP/Tdap/Td Immunization Discontinued 12/28/2019 TdaP Immunization Completed 12/28/2019 Meningococcal Immunization (ACWY) Aged Out No longer eligible based on patient's age to complete this topic Pneumococcal Immunization Combined Aged Out No longer eligible based on patient's age to complete this topic Rotavirus Immunization Aged Out No lo nger eligible based on patient's age to complete this topic
--- OUTSIDE RECORDS SUMMARY | 2024-08-10 20:54 | XMS_ITS | Clinical Summary ---
Author Organization [facility] Address [address] [facility] [place] [address] Care Team Providers Care Milking Machine Mechanic Name Role Phone Linda Lugo MD Primary Care Provider [phone] Source Comments [facility],non-owned Affiliates and Associated Physician Practices is amultiple site organization consisting of ambulatory clinics and hospital sitesin [place], [place] and [place]. This disclosure is being madepursuant to the Care Everywhere program and may not contain all information available regarding this patient. Last updated 18.[facility] Social History Tobacco Use Types Packs/Day Years Used Date Smoking Tobacco: Never Assessed Sex and Gender Information Value Date Recorded Sex Assigned at Not on file Gender Identity Not on file Sexual Orientation Not on file Plan of Treatment Health Maintenance Due Date Last Done Comments PAP SMEAR 1992 HIV SCREENING 2007 HEPATITIS C SCREENING 06/23/2010 DTAP/TDAP/TD VACCINES (1 - Tdap) 2011 HEPATITIS B VACCINE (1 of 3 - 19+ 3-dose series) 2011 COVID-19 VACCINE ( - 2023-2 5 season) 2024 INFLUENZA VACCINE (#1) 2024 DEPRESSION SCREENING 05/24/2024 ZOSTER VACCINE (1 of 2) 2042 HIB VACCINE Aged Out No longer eligi ble based on patient's age to complete this topic HPV VACCINE Aged Out No longer eligi ble based on patient's age to complete this topic MENINGOCOCCAL (Group B) VACC INE SHARED DECISION-MAKING Aged Out No longer eligibl e based on patient's age to complete this topic MENINGOCOCCAL GROUPS A/C/Y/W VACCINE Aged Out No longer eligible b ased on patient's age to complete this topic PNEUMOCOCCAL VACCINE Aged Out No long er eligible based on patient's age to complete this topic Care Teams Milking Machine Mechanic Relationship Specialty Start Date End Date Linda Lugo MD [address] [place] [address] PCP - General Family Medicine 11/27/14
--- OUTSIDE RECORDS SUMMARY | 2024-08-10 20:54 | XMS_ITS | Encounter Summary ---
Author Organization [facility] Address [address] [place] [address] Care Team Providers Care Supervisor Metalizing Name Role Phone Priti Damon MD Primary Care Provider [phone] Encounter Details Date Type Department Care Team (Late Contact Info) Description 08/10/2024 Orders Only [facility] [employer] [place] [address] [address] Cristine Stinson, ANP [address] [facility] [address] [place] [address] Bilateral lower abdominal pain (Primary Dx) Social History Tobacco Use Types Packs/Day Years [...] on file documented as of this encounter Plan of Treatment Upcoming Encounters Date Type Department Care Team (Late st Contact Info) Description 08/11/2024 1:00 PM CDT Procedure visit [facility] [employer] [facility] [address] [phone] 08/15/2024 7:30 AM CDT Office Visit [facility] [employer] [place] [address] [place] [address] Cristine Stinson, ANP [address] [address] [place] [address] 09/19/2024 7:30 AM CDT Office Visit [facility] [employer] [place] [address] [place] [address] Cristine Stinson, ANP [address] [address] [place] [address] Scheduled Orders Name Type Priority Associated Diagnoses Orde r Schedule URINALYSIS WITH REFLEX CULTURE Lab Routine Bilateral lower abdominal pain Expected: 08/10/2024, Expires: 08/10/2025 COMPREHENSIVE METABOLIC PANEL Lab Routine Bilateral lower abdominal pain Expected: 08/10/2024, Expires: 08/10/2025 CBC WITH DIFFERENTIAL Lab Routine Bilateral lower abdominal pain Expected: 08/10/2024, Expires: 08/10/2025 C-REACTIVE PROTEIN Lab Routine Bilateral lower abdominal pain Expected: 08/10/2024, Expires: 08/10/2025 LIPASE Lab Routine Bilateral lower abdominal pain Expected: 08/10/2024, Expires: 08/10/2025 AMYLASE Lab Routine Bilateral lower abdominal pain Expected: 08/10/2024, Expires: 08/10/2025 documented as of this encounter Visit Diagnoses Diagnosis Bilateral lower abdominal pain- Primary Abdominal pain, other specified site documented in this encounter Care Teams Supervisor Metalizing Relationship Specialty Start Date End Date Priti Damon MD [address] [place] [address] PCP - General Internal Medicine 10/21/23 documented as of this encounter
[2024-08-10 21:15] VITALS: BP 122/75; PULSE 62; RESP 16; TEMP 36.4; O2SAT 100
[2024-08-10 21:43] LABS: Basophils Percent Auto 0.6 % (0.2-1.2); Eosinophils Absolute Auto 0.1 K/mm3 (0-0.3); Eosinophils Percent Auto 1.3 % (0-4.4); Hematocrit 36.2 % (37.0-47.0); Hemoglobin 11.7 g/dL (12.0-15.0); Immature Granulocyte Absolute 0.02 K/mm3 (0.00-0.031); Immature Granulocyte Percent A 0.3 % (0-0.5); Lymphocytes Percent Auto 34.4 % (18.3-44.2); Mean Corpuscular HGB Conc 32.3 g/dl (32-36); Mean Corpuscular Hemoglobin 30.1 pg (26-34); Mean Corpuscular Volume 93.1 fl (80-100); Mean Platelet Volume 10.4 fl (7.4-10.4); Monocytes Absolute Auto 0.5 K/mm3 (0.1-0.6); Monocytes Percent Auto 7.3 % (2.6-8.5); Neutrophils Absolute Auto 3.8 K/mm3 (1.3-6.7); Neutrophils Percent Auto 56.1 % (45.5-73.1); Platelet Count Result 247 k/mm3 (150-375); Red Blood Count 3.89 M/mm3 (4.2-5.4); Red Cell Distribution Width 12.8 % (11.5-14.5); White Blood Count 6.7 K/mm3 (4.5-10.0)
[2024-08-10 21:45] LABS: Add Urine Microscopic? NO; Appearance Urine Clear (Clear); Bilirubin Urine Negative (Negative); Blood Urine Non-Hemolyzed Trace (Negative); Color Urine Yellow (Yellow); Glucose Urine UA Negative (Negative); Ketones Urine Negative (Negative); Leukocyte Esterase Ur Negative LEU/UL (Negative); Nitrate Urine Negative (Negative); Protein Urine Negative (Negative); Specific Grav Ur 1.017 (1.001-1.035); Urobilinogen Urine 0.2 mg/dL (<2.0); pH Urine 6.5 (5.0-9.0)
[2024-08-10 21:53] LABS: Alanine Aminotransferase 43 U/L (6-35); Albumin Level 4.6 g/dL (3.5-5.1); Alkaline Phosphatase 53 U/L (38-126); Anion Gap 9 mmol/L (4-12); Aspartate Amino Transferase 33 U/L (14-36); Bilirubin,Total 0.5 mg/dL (0.2-1.3); Blood Urea Nitrogen 16 mg/dL (7-17); Calcium 9.6 mg/dL (8.4-10.2); Carbon Dioxide 28 mmol/L (22-30); Chloride 105 mmol/L (98-107); Estimated CRCL calculation 85 ml/min; Estimated Glomerular Filt Rate > 60; Glucose 92 mg/dL (65-110); Lipase 143 U/L (23-300); Sodium 142 mmol/L (137-145)
[2024-08-11 00:37] VITALS: BP 136/85; PULSE 65; RESP 15; O2SAT 100
[2024-08-11 03:08] LABS: BEDSIDEPREGUCG Negative (Negative)
--- OUTSIDE RECORDS SUMMARY | 2024-08-11 04:36 | XMS_ITS | Clinical Summary ---
Author Organization [facility] Care Team Providers Care Spacecraft Systems Engineer Name Role Phone Unavailable Primary Care Provider Unavailabl e Social History Tobacco Use Types Packs/Day Years Used Date Smoking Tobacco: Never Assessed Comments Unknown Sex and Gender Information Value Date Recorded Sex Assigned at Not on file Legal Sex Female 10:56 AM DIRECTOR OF MEDIA Gender Identity Not on file Sexual Orientation [...]
--- OUTSIDE RECORDS SUMMARY | 2024-08-11 04:36 | XMS_ITS | Clinical Summary ---
Author Organization [facility] [employer] Address [address] [place] [address] [address] Care Team Providers Care Global Sales Director Name Role Phone Priti Damon MD Primary Care Provider [phone] Allergies Active Allergy Reactions Criticality Noted Date [...] Department Care Team Description 08/10/2024 Orders Only [facility] [place] [address] [email or web address] [place] [address] Cristine Stinson, RANDALL Bilateral lower abdominal pain (Primary Dx) 07/29/2024 External Device Data STL ABSTRACTION Provider, Abstract 07/28/2024 External Device Data STL ABSTRACTION Provider, Abstract 07/25/2024 External Device Data STL ABSTRACTION Provider, Abstract 07/11/2024 External Device Data STL ABSTRACTION Provider, Abstract 07/11/2024 Orders Only [facility] at [place] [address] [address] Cristine Stinson, RANDALL 06/20/2024 7:30 AM LIFE SKILLS EDUCATOR Office Visit [place] [address] [address] Priti Damon MD Morbid obesity with body mass index of 40.0-49.9 (CMS/HCC) (Primary Dx); Low HDL (under 40); Vitamin D deficiency 06/20/2024 External Device Data STL ABSTRACTION Provider, Abstract 06/15/2024 Results Follow-Up [place] [address] [place] [address] Cristine Stinson, RANDALL MAGNESIUM LEVEL, LIPID PANEL, COMPREHENSIVE METABOLIC PANEL, Additional followed-up results: 7 06/14/2024 External Device Data STL ABSTRACTION Provider, Abstract 06/13/2024 7:40 AM LIFE SKILLS EDUCATOR Clinical Support [place] [address] [address] S/P bariatric surgery - lap band.; Screening [...] Comments Blood Pressure 114/66 06/20/2024 7:34 AM LIFE SKILLS EDUCATOR Pulse 74 06/20/2024 7:34 AM LIFE SKILLS EDUCATOR Temperature 36.2 C (97.2 F) 06/20/2024 7:34 AM LIFE SKILLS EDUCATOR Respiratory Rate 18 06/20/2024 7:34 AM LIFE SKILLS EDUCATOR Oxygen Saturation 98% 06/20/2024 7:34 AM LIFE SKILLS EDUCATOR Inhaled Oxygen Concentration - - Weight 115.7 kg (255 lb) 06/20/2024 7:34 AM LIFE SKILLS EDUCATOR Height 167.6 cm (5' 6 ) 06/20/2024 7:34 AM LIFE SKILLS EDUCATOR Body Mass Index 41.16 06/20/2024 7:34 AM LIFE SKILLS EDUCATOR Plan of Treatment Upcoming Encounters Date Type Department Care Team (Late st Contact Info) Description 08/11/2024 1:00 PM CDT Procedure visit [facility] [employer] [place] [address] [place] [address] 08/15/2024 7:30 AM CDT Office Visit [facility] [employer] [place] [address] [place] [address] Cristine Stinson, RANDALL [address] [address] [facility] [address] [place] [address] 09/19/2024 7:30 AM CDT Office Visit [facility] [employer] [place] [address] [place] [address] Cristine Stinson, RANDALL [address] [facility] [address] [place] [address] [place] [address] Health Maintenance Due Date Last Done Comments [...] B12 LEVEL Routine 06/13/2024 7:4 0 AM LIFE SKILLS EDUCATOR S/P bariatric surgery - lap band. FOLATE, SERUM Routine 06/13/2024 7:40 AM LIFE SKILLS EDUCATOR S/P bariatric surgery - lap band. VITAMIN D 25 HYDROXY Routine 06/13/2024 7:40 AM LIFE SKILLS EDUCATOR S/P bariatric surgery - lap band. HEMOGLOBIN A1C Routine 06/13/2024 7:40 AM LIFE SKILLS EDUCATOR Screening for condition MICROALBUMIN/CREATININ E RATIO, RANDOM UR Routine 06/13/2024 7:40 AM LIFE SKILLS EDUCATOR Screening for condition TSH REFLEXIVE Routine 06/13/2024 7:40 AM LIFE SKILLS EDUCATOR Screening for condition CBC WITH DIFFERENTIAL Routine 06/13/2024 7:40 AM LIFE SKILLS EDUCATOR Screening for condition COMPREHENSIVE METABOLIC PANEL Routine 06/13/2024 7:40 AM LIFE SKILLS EDUCATOR Screening for condition LIPID PANEL Routine 06/13/2024 7:40 AM LIFE SKILLS EDUCATOR Screening for condition MAGNESIUM LEVEL Routine 06/13/2024 7:40 AM LIFE SKILLS EDUCATOR S/P bariatric surgery - lap band. from Last 3 Months Results * TSH REFLEXIVE (06/13/2024 7:40 AM LIFE SKILLS EDUCATOR) TSH 1.15 mIU/L [facility] Comment: Reference Range > or = 20 Years 0.40-4.50 Ranges First trimester 0.26-2.66 Second trimester 0.55-2.73 Third trimester 0.43-2.91 Test Performed at: [facility] [address] Michoacano Espinal MD Blood 06/13/2024 7:40 AM LIFE SKILLS EDUCATOR 06/14/2024 8:25 AM LIFE SKILLS EDUCATOR Cristine Stinson ANP CHEMISTRY ORDERABLES Final R esult [facility] [phone] [address] * MICROALBUMIN/CREATININE RATIO, RANDOM UR (06/13/2024 7:40 AM LIFE SKILLS EDUCATOR) Creatinine, Urine 235 20 - 275 mg/dL [...] within a diagnostic category. Test Performed at: [facility] [place] [address] Michoacano Espinal MD Urine URINE SPECIMEN OBTAINED BY CLEAN CATCH PROCEDURE / Unknown 06/13/2024 7:40 AM LIFE SKILLS EDUCATOR 06/14/2024 8:24 AM LIFE SKILLS EDUCATOR Cristine Stinson ANP URINE ORDERABLES Final Resul t Performing Organization Address [facility] de Phone Number [facility] [phone] [facility] [address] * FOLATE, SERUM (06/13/2024 7:40 AM LIFE SKILLS EDUCATOR) [facility] FOLATE, SERUM >24.0 ng/mL [facility] Comment: Reference Range Low: <3.4 Borderline: 3.4-5.4 Normal: >5.4 Test Performed at: [facility] [address] Michoacano Espinal MD Blood 06/13/2024 7:40 AM LIFE SKILLS EDUCATOR 06/14/2024 8:25 AM LIFE SKILLS EDUCATOR Cristine Stinson ANP CHEMISTRY ORDERABLES Final R esult Performing Organization Address [facility] Co de Phone Number [facility] [phone] [facility] [address] * CBC WITH DIFFERENTIAL (06/13/2024 7:40 AM LIFE SKILLS EDUCATOR) [facility] WBC 4.4 3.8 - 10.8 [...] [facility] Comment: Test Performed at: [facility] [address] [place] [address] Michoacano Espinal MD Blood 06/13/2024 7:40 AM LIFE SKILLS EDUCATOR 06/14/2024 8:25 AM LIFE SKILLS EDUCATOR us Cristine Stinson ANP HEMATOLOGY ORDERABLES Final Result [facility] [phone] [facility] [address] [place] [address] * VITAMIN D 25 HYDROXY (06/13/2024 7:40 AM LIFE SKILLS EDUCATOR) VITAMIN D, 25 OH, TOTAL 33 30 - 100 ng/mL [facility] Comment: Vitamin D Status 25-OH Vitamin D: Deficiency: <20 ng/mL Insufficiency: 20 - 29 ng/mL Optimal: > or = 30 ng/mL For 25-OH Vitamin D testing on patients on D2-supplementation and patients for whom quantitation of D2 and D3 fractions is required, the [facility](TM) 25-OH VIT D, (D2,D3), LC/MS/MS is recommended: order code [id number] (patients >2yrs). See Note 1 Note 1 For additional information, please refer to http://education.[facility]/faq/FWK928 (This link is being provided for informational/ educational purposes only.) Test Performed at: [facility] [facility] [place] [address] Michoacano Espinal MD Blood 06/13/2024 7:40 AM LIFE SKILLS EDUCATOR 06/14/2024 8:25 AM LIFE SKILLS EDUCATOR Cristine Stinson ANP CHEMISTRY ORDERABLES Final R esult Performing Organization Address [facility]/ZIP Co de Phone Number [facility] [phone] [facility] [address] * MAGNESIUM LEVEL (06/13/2024 7:40 AM LIFE SKILLS EDUCATOR) MAGNESIUM 2.1 1.5 - 2.5 mg/dL [facility] Comment: Test Performed at: [email or web address] [place] [address] Michoacano Espinal MD Blood 06/13/2024 7:40 AM LIFE SKILLS EDUCATOR 06/14/2024 8:25 AM LIFE SKILLS EDUCATOR Cristine Stinson ANP CHEMISTRY ORDERABLES Final R [facility] Performing Organization Address [facility] Co de Phone Number [facility] [phone] [facility] [address] * HEMOGLOBIN A1C (06/13/2024 7:40 AM LIFE SKILLS EDUCATOR) HEMOGLOBIN A1C 4.6 <5.7 % of total [...] diagnosis of diabetes in children. According to [place] Diabetes Association (ADA) guidelines, hemoglobin A1c <7.0% represents optimal control in non- diabetic patients. Different metrics may apply to specific patient populations. Standards of Medical Care in Diabetes(ADA). ESTIMATED AVERAGE GLUCOSE (MG/DL) 85 mg/dL [facility] ESTIMATED AVERAGE GLUCOSE (MMOL/L) 4.7 mmol/L [facility] Comment: Test Performed at: [facility] [address] [facility] [place] [address] Michoacano Espinal MD Blood 06/13/2024 7:40 AM LIFE SKILLS EDUCATOR 06/14/2024 8:25 AM LIFE SKILLS EDUCATOR Cristine Stinson ANP CHEMISTRY ORDERABLES Final R esult Performing Organization Address City/[facility]/ZIP Co de Phone Number [facility] [phone] [facility] [place] [address] * VITAMIN B12 LEVEL (06/13/2024 7:40 AM LIFE SKILLS EDUCATOR) VITAMIN B12 845 200 - 1100 pg/mL [facility] Comment: Test Performed at: [facility] [address] [place] [address] [place] [address] Michoacano Espinal MD Blood 06/13/2024 7:40 AM LIFE SKILLS EDUCATOR 06/14/2024 8:25 AM LIFE SKILLS EDUCATOR Cristine Stinson ANP CHEMISTRY ORDERABLES Final R esult [facility] [phone] [facility] [address] [place] [address] * (ABNORMAL) LIPID PANEL (06/13/2024 7:40 AM LIFE SKILLS EDUCATOR) CHOLESTEROL 146 <200 mg/dL [facility] [...] of LDL-C. Navin HODGE et al. BECKA. 2013;310(36): 8650-9227 (http://education.[facility]/faq/XXL729) CHOL/HDL RATIO 3.3 <5.0 (calc) [facility] NON-HDL CHOLESTEROL 102 <130 mg/dL (calc) [facility] Comment: For patients with diabetes plus 1 major ASCVD risk factor, treating to a non-HDL-C goal of <100 mg/dL (LDL-C of <70 mg/dL) is considered a therapeutic option. Test Performed at: [email or web address] [address] [place] [address] Michoacano Espinal MD Blood 06/13/2024 7:40 AM LIFE SKILLS EDUCATOR 06/14/2024 8:25 AM LIFE SKILLS EDUCATOR us Cristine Stinson [facility] CHEMISTRY ORDERABLES Final R esult [facility] [phone] [email or web address] [address] [place] [address] * (ABNORMAL) COMPREHENSIVE METABOLIC PANEL (06/13/2024 7:40 AM LIFE SKILLS EDUCATOR) GLUCOSE 76 65 - 99 mg/dL [facility] Comment: Fasting reference interval BUN 18 [...] [facility] Comment: Test Performed at: [email or web address] [address] [place] [address] Michoacano Espinal MD Blood 06/13/2024 7:40 AM LIFE SKILLS EDUCATOR 06/14/2024 8:25 AM LIFE SKILLS EDUCATOR us Cristine Stinson [facility] CHEMISTRY ORDERABLES Final R esult [facility] [phone] [facility] [address] [place] [address] from Last 3 Months Insurance OPEN ACCESS [employer] OPEN ACCESS Care Teams Global Sales Director Relationship Specialty Start Date End Date Priti Damon MD [address] [place] [address] [place] [address] PCP - General Internal Medicine 10/21/23
--- OUTSIDE RECORDS SUMMARY | 2024-08-11 04:36 | XMS_ITS | Encounter Summary ---
Author Organization [facility] Address [address] [place] [address] Care Team Providers Care Bottle Machine Operator Name Role Phone Priti Damon MD Primary Care Provider [phone] Encounter Details Date Type Department Care Team (Late Contact Info) Description 08/10/2024 Orders Only [facility] at [facility] [employer] [place] [address] [address] Cristine Stinson, ANP [phone] [facility] [address] [place] [address] Bilateral lower abdominal pain (Primary [...] Description 08/11/2024 1:00 PM CDT Procedure visit [facility] at [facility] [employer] [facility] [address] [place] [id number] 08/15/2024 7:30 AM CDT Office Visit [facility] at [facility] [employer] [place] [address] [place] [phone] Cristine Stinson, ANP [phone] [address] [facility] [address] [place] [address] 09/19/2024 7:30 AM CDT Office Visit [facility] at Work [employer] [place] [address] [place] [phone] Cristine Stinson, ANP [phone] [address] [facility] [address] [place] [address] Scheduled Orders Name Type Priority [...] site documented in this encounter Care Teams Bottle Machine Operator Relationship Specialty Start Date End Date Priti Damon MD [address] [place] [phone] PCP - General Internal Medicine 10/21/23 documented as of this encounter
--- OUTSIDE RECORDS SUMMARY | 2024-08-11 04:36 | XMS_ITS | Encounter Summary ---
Author Organization [facility] Address [address] [place] [address] Care Team Providers Care Blood Splatter Analyst Name Role Phone Priti Damon MD Primary Care Provider [phone] Encounter Details Date Type Department Care Team (Latest Contact Info) Description 06/15/2024 Results Follow-Up [facility] [employer] [place] [address] [place] [address] Cristine Stinson ANP [phone] [facility] [address] [place] [address] MAGNESIUM LEVEL, LIPID PANEL, COMPREHENSIVE [...] Cristine Stinson ANP - 06/15/2024 7:24 AM [facility] Labs all excellent. No concerns noted. Keep Jun [address] Damon. DIPPER documented in this encounter Plan of Treatment Upcoming Encounters Date Type Department Care Team (Late st Contact Info) Description 08/11/2024 1:00 PM CDT Procedure visit [facility] [employer] [place] [address] [place] [address] 08/15/2024 7:30 AM CDT Office Visit [facility] [place] [address] [place] [address] Cristine Stinson, ANP [phone] [facility] [address] [place] [address] 09/19/2024 7:30 AM CDT Office Visit [facility] [employer] [place] [address] [place] [address] Cristine Stinson, ANP [phone] [facility] [address] [place] [address] documented as of this encounter Visit Diagnoses Not on filedocumented in this encounter Care Teams Blood Splatter Analyst Relationship Specialty Start Date End Date Priti Damon MD [address] [place] [phone] PCP - General Internal Medicine 10/21/23 documented as of this encounter
--- OUTSIDE RECORDS SUMMARY | 2024-08-11 04:36 | XMS_ITS | Clinical Summary ---
Author Organization [facility] [employer] Address [address] [place] [address] Care Team Providers Care Electrical Superintendent Name Role Phone Linda Lugo MD Primary Care Provider [phone] Source Comments [facility] [employer],non-owned Affiliates and Associated Physician Practices is amultiple site organization consisting of ambulatory clinics and hospital sitesin [place], [place] and [place]. This disclosure is being madepursuant to the Care Everywhere program and may not contain all information available regarding this patient. Last updated 18.[facility] [employer] Social History Tobacco Use Types Packs/Day Years [...] age to complete this topic Care Teams Electrical Superintendent Relationship Specialty Start Date End Date Linda Lugo MD [address] [place] [address] PCP - General Family Medicine 11/27/14
--- NOTE | 2024-08-11 05:46 | ED_ITS ---
HPI - General Adult General Chief complaint: Abdominal Pain Stated complaint: Abdominal pain x 1 week Time Seen by Provider: 08/11/24 02:47 History of Present Illness HPI narrative: Patient is a 34-year-old female who presents emergency department with chief complaint of abdominal pain for the last week. Patient reports she has prior history of lap band about 13 years ago the patient is currently on Z bound and reports that she has recently increased her dosage. The patient states her abdomen is aching and does feels uncomfortable Related Data Allergies Allergy/AdvReac Type Severity Reaction Status Date / Time poison ady extract Allergy Unknown Swelling Verified 08/10/24 20:52 Bumble Bee Allergy Unknown Swelling Uncoded 08/10/24 20:52 Review of Systems 2 Review of Systems: A 10 system review of systems was completed on the patient and is negative except for what is stated in the HPI. Nursing and ancillary documentation was reviewed. [facility] Past Medical History Medical History Pure hyperglyceridemia Anxiety state, unspecified Surgical History Surgical History No pertinent past surgical history Family History Family History Sibling Diabetes mellitus Family history of malignant neoplasm Family history of lung cancer Social History Social History Smoking status: Smoker, status unknown Alcohol intake: current Gender identity (if verbalized by the patient): Female Exam 2 Narrative: GENERAL: Well-appearing, well-nourished, and in no acute distress. HEAD: Normocephalic, atraumatic. EYES: PERRLA and EOMI. ENT: Nares clear, no rhinorrhea or epistaxis. Mucous membranes moist. NECK: Supple. CHEST: Clear to auscultation. No respiratory distress. HEART: Regular rate and rhythm. No murmur heard. Normal peripheral pulses. ABDOMEN: Soft, nontender, nondistended, normal active bowel sounds. EXTREMITIES: Normal range of motion. No edema. SKIN: Warm, dry, no rash. NEURO: No focal deficits. Alert and oriented x3. PSYCH: Normal mood and affect. Course Vital Signs Vital signs: Vital Signs Temperature 36.4 C 08/10/24 21:15 Pulse Rate 62 08/10/24 21:15 Respiratory Rate 16 08/10/24 21:15 Blood Pressure 122/75 08/10/24 21:15 Pulse Oximetry 100 08/10/24 21:15 Oxygen Delivery Room Air 08/10/24 21:15 Temperature 36.4 C 08/10/24 21:15 Pulse Rate 65 08/11/24 00:37 Respiratory Rate 15 08/11/24 00:37 Blood Pressure 136/85 08/11/24 00:37 Pulse Oximetry 100 08/11/24 00:37 Oxygen Delivery Room Air 08/10/24 21:15 Medical Decision Making MDM Narrative Medical decision making narrative: Differential diagnosis includes slipped lap band, intra-abdominal infection, diverticulitis, colitis, intra-abdominal flexion, medication side effect CT scan the abdomen pelvis showed no acute abnormality there was evidence of cholelithiasis without cholecystitis Vital Signs Vital Signs: Vital Signs Temperature 36.4 C 08/10/24 21:15 Pulse Rate 62 08/10/24 21:15 Respiratory Rate 16 08/10/24 21:15 Blood Pressure 122/75 08/10/24 21:15 Pulse Oximetry 100 08/10/24 21:15 Oxygen Delivery Room Air 08/10/24 21:15 Temperature 36.4 C 08/10/24 21:15 Pulse Rate 65 08/11/24 00:37 Respiratory Rate 15 08/11/24 00:37 Blood Pressure 136/85 08/11/24 00:37 Pulse Oximetry 100 08/11/24 00:37 Oxygen Delivery Room Air 08/10/24 21:15 Lab Data 08/10/24 21:38 08/10/24 21:38 Labs: Lab Results 08/10/24 08/11/24 Range/Units 21:38 00:30 WBC 6.7 (4.5-10.0) K/mm3 RBC 3.89 L (4.2-5.4) M/mm3 Hgb 11.7 L (12.0-15.0) g/dL Hct 36.2 L (37.0-47.0) % MCV 93.1 (80-100) fl MCH 30.1 (26-34) pg MCHC 32.3 (32-36) g/dl RDW 12.8 (11.5-14.5) % Plt Count 247 (150-375) k/mm3 MPV 10.4 (7.4-10.4) fl Immature Gran % (Auto) 0.3 (0-0.5) % Neut % (Auto) 56.1 (45.5-73.1) % Lymph % (Auto) 34.4 (18.3-44.2) % [place] % (Auto) 7.3 (2.6-8.5) % Eos % (Auto) 1.3 (0-4.4) % Baso % (Auto) 0.6 (0.2-1.2) % Lymph # (Auto) 2.30 (0.9-3.2) K/mm3 [place] # (Auto) 0.5 (0.1-0.6) K/mm3 Eos # (Auto) 0.1 (0-0.3) K/mm3 Baso # (Auto) 0.0 (0.0-0.1) K/mm3 Abs Immat Gran (auto) 0.02 (0.00-0.031) K/mm3 Absolute Neuts (auto) 3.8 (1.3-6.7) K/mm3 Absolute Nucleated RBC 0.000 (0.0-0.012) K/mm3 Nucleated RBC % 0.0 (0.0-0.2) % Sodium 142 (137-145) mmol/L Potassium 4.0 (3.4-5.0) mmol/L Chloride 105 (98-107) mmol/L Carbon Dioxide 28 (22-30) mmol/L Anion Gap 9 (4-12) mmol/L BUN 16 (7-17) mg/dL Creatinine 1.04 H (0.7-1.0) mg/dL Estim Creat Clear Calc 85 ml/min Estimated GFR > 60 (59 - ) Glucose 92 (65-110) mg/dL Calcium 9.6 (8.4-10.2) mg/dL Total Bilirubin 0.5 (0.2-1.3) mg/dL AST 33 (14-36) U/L ALT 43 H (6-35) U/L Alkaline Phosphatase 53 (38-126) U/L Total Protein 7.0 (6.3-8.2) g/dL Albumin 4.6 (3.5-5.1) g/dL Lipase 143 (23-300) U/L Urine Color Yellow (Yellow) Urine Appearance Clear (Clear) Urine pH 6.5 (5.0-9.0) Ur Specific [place] 1.017 (1.001-1.035) Urine Protein Negative (Negative) mg/dL Urine Glucose (UA) Negative (Negative) mg/dL Urine Ketones Negative (Negative) mg/dL Ur Blood (Man) Non-hemolyzed trace H (Negative) Urine Nitrate Negative (Negative) Urine Bilirubin Negative (Negative) Urine Urobilinogen 0.2 (<2.0) mg/dL Leukocyte Esterase Rfl Negative (Negative) VENITA/UL POC Urine HCG, Qual Negative (Negative) Discharge Plan Discharge Clinical Impression: Abdominal pain, Cholelithiasis Patient Disposition: Home, Self-Care Condition: Stable Instructions: Antibiotic Form, Gallstones (ED), Abdominal Pain (ED) Additional Instructions: The CT scan did show that you have some gallstones this is not where your having pain at at this point it is recommended that you do avoid fatty and greasy foods. Please start with clear liquid diet and advance slowly you may want to consider reducing your Zep bound to your previous dose Patient Language: Japanese Prescriptions: New ondansetron 4 mg tablet,disintegrating 4 mg PO Q8H PRN (Reason: nausea and vomiting) Qty: 10 0RF dicyclomine 20 mg tablet 20 mg PO QID PRN (Reason: abdominal discomfort) Qty: 20 0RF No Action Cepacol Sore Throat (risa-men) 15-2.6 mg lozenge 1 claudia mucous membrane Q2-4H PRN (Reason: sore throat) Qty: 16 0RF Follow-up/Referrals: Georgette,Nereida Sheehan MD [Primary Care Provider] - Time of Disposition: 06:58
[2024-08-11 07:04] VITALS: BP 128/62; PULSE 79; RESP 16; O2SAT 100
== END 2024-08-11 07:05 | disposition home or self-care (01) ==
PROVIDERS: Emergency Provider Emergency Medicine; PCP Family Medicine
DX: K80.20 Calculus of gallbladder without cholecystitis without obstruction (principal)
CPT/HCPCS: 36415; 74177; 80053; 81003; 81025; 83690; 85025; 99284; J2405; J7030; Q9967